=== PATIENT | female | born 1965 | race African-American/Black ===

== ENCOUNTER 2016-05-04 15:45 | Emergency (ER) | payer MEDICAID ==
[~2016-05-04] VITALS: Ht 167.6 cm; Wt 60.0 kg
[~2016-05-04 15:45] MED LIST: DIPH25CA83 PO; HYDR-519 PO; OXCA150T5 PO
[2016-05-04] MEDS ORDERED: HYDROCODONE/ACETAMINOPHEN 10/325MG TABLET PO ONE (16:30)
[2016-05-04 16:52] VITALS: BP 122/76
== END 2016-05-04 16:55 | disposition home or self-care (01) ==
LOC: ER 15:46
DX: G89.29 Other chronic pain (principal); M54.9 Dorsalgia, unspecified; F31.9 Bipolar disorder, unspecified; Z90.710 Acquired absence of both cervix and uterus; Z90.49 Acquired absence of other specified parts of digestive tract; Z88.5 Allergy status to narcotic agent; Z88.2 Allergy status to sulfonamides
CPT/HCPCS: 99283

== ENCOUNTER 2016-11-22 17:59 | Emergency (ER) | payer MEDICAID ==
[~2016-11-22] VITALS: Ht 167.6 cm; Wt 60.0 kg
[2016-11-22 21:59] LABS: BASOPHILS % 0.5 % (0.0-2.0); EOSINOPHILS % 1.4 % (0.0-5.0); HEMATOCRIT. 37.2 % (36.0-48.0); HEMOGLOBIN. 12.4 g/dL (12.0-16.0); LYMPHOCYTES % 63.8 % (20.0-50.0); MEAN CORPUSCULAR HEMOGLOBIN 27.8 pg (28.0-32.0); MEAN CORPUSCULAR VOLUME 83.6 fL (81.0-99.0); MEAN PLATELET VOLUME 8.2 fl (7.4-10.4); MONOCYTES % 7.8 % (2.0-8.0); NEUTROPHILS % 26.5 % (40.0-76.0); PLATELET 201 x1000/uL (130-400); RED BLOOD CELL COUNT 4.45 mill/uL (4.2-5.4); RED CELL DISTRIBUTION WIDTH 13.6 % (11.6-14.6)
[2016-11-22 22:12] LABS: CARBON DIOXIDE 24 mEq/L (21-32); CHLORIDE 110 mEq/L (98-107); TROPONIN I < 0.02 ng/mL (0.00-0.04)
[2016-11-22] MEDS ORDERED: KETOROLAC 15MG/ML VIAL IV ONE (23:15)
[2016-11-22 23:40] VITALS: BP 103/67
== END 2016-11-23 00:15 | disposition home or self-care (01) ==
LOC: ER 17:59
DX: M94.0 Chondrocostal junction syndrome [Tietze] (principal); R07.89 Other chest pain; F31.9 Bipolar disorder, unspecified; Z90.710 Acquired absence of both cervix and uterus; Z88.5 Allergy status to narcotic agent; Z88.2 Allergy status to sulfonamides; Z90.49 Acquired absence of other specified parts of digestive tract
CPT/HCPCS: 36415; 71010; 80048; 84484; 85025; 85379; 93005; 96374; 99285; C1893; J1885; Z7610

== ENCOUNTER 2017-02-13 08:14 | Emergency (ER) | payer MEDICAID ==
[~2017-02-13] VITALS: Ht 165.1 cm; Wt 69.0 kg
[2017-02-13 08:17] VITALS: BP 101/70
== END 2017-02-13 14:50 | disposition left against medical advice (07) ==
LOC: ER 08:28
DX: M79.1 Myalgia (principal); Z53.21 Procedure and treatment not carried out due to patient leaving prior to being seen by health care provider

== ENCOUNTER 2018-02-28 23:25 | Inpatient (IN) | payer MEDICAID ==
[~2018-02-28] VITALS: Ht 170.2 cm; Wt 73.9 kg
[2018-03-01] MEDS ORDERED: SODIUM CHLORIDE 0.45% 100 ML IV ONE (02:00)
[2018-03-01] MEDS ORDERED: ONDANSETRON HCL 4MG/2ML INJ IV ONE (02:00)
[2018-03-01] MEDS ORDERED: KETOROLAC 30MG/ML VIAL IV ONE (03:15)
[2018-03-01] MEDS ORDERED: SODIUM CHLORIDE 0.9% 1,000 ML IV ONE (03:15)
[2018-03-01 03:59] LABS: BASOPHILS % 0.3 % (0.0-2.0); HEMATOCRIT. 49.8 % (36.0-48.0); HEMOGLOBIN. 15.9 g/dL (12.0-16.0); LYMPHOCYTES % 8.3 % (20.0-50.0); MEAN CORPUSCULAR HEMOGLOBIN 26.9 pg (28.0-32.0); MEAN CORPUSCULAR VOLUME 84.1 fL (81.0-99.0); MEAN PLATELET VOLUME 8.6 fl (7.4-10.4); MONOCYTES % 4.7 % (2.0-8.0); NEUTROPHILS % 86.7 % (40.0-76.0); PLATELET 234 x1000/uL (130-400); RED BLOOD CELL COUNT 5.93 mill/uL (4.2-5.4); RED CELL DISTRIBUTION WIDTH 14.1 % (11.6-14.6)
[2018-03-01 04:03] LABS: CHLORIDE 107 mEq/L (98-107)
[2018-03-01 04:04] LABS: PARTIAL THROMBOPLASTIN TIME 23.1 sec (23.4-31.0); PROTHROMBIN TIME 10.5 sec (9.1-11.1)
[2018-03-01] MEDS ORDERED: CLONIDINE 0.1MG TABLET PO PRN (07:45)
[2018-03-01] MEDS ORDERED: IPRATROPIUM/ALBUTEROL 0.5-3(2.5)MG/3ML NEB INH PRN (07:45)
[2018-03-01] MEDS ORDERED: LORAZEPAM 2MG/ML CPJ IV PRN (07:45)
[2018-03-01] MEDS: MORPHINE SULFATE 4 MG/ML CPJ (NOT FOR IM USE) IV PRN ×2 (08:41→12:36)
[2018-03-01] MEDS: ONDANSETRON HCL 4MG/2ML INJ IV PRN ×2 (08:41→13:35)
[2018-03-01] MEDS: DEXT 5%/0.45% NACL KCL 10MEQ/L 1,000 ML IV SCH (08:47)
[2018-03-01] MEDS ORDERED: SKIN ADHESIVE 0.7 GM EA TOP ONE (09:48)
[2018-03-01] MEDS ORDERED: BUPIVACAINE HCL 0.5% (5MG/ML) 50ML ONE (09:48)
[2018-03-01] MEDS ORDERED: ROCURONIUM BROMIDE 10MG/ML VIAL 5ML IV ONE ×2 (10:35→11:42)
[2018-03-01] MEDS ORDERED: GLYCOPYRROLATE 0.2 MG/ML 2ML VIAL ONE ×2 (10:35→11:42)
[2018-03-01] MEDS ORDERED: NEOSTIGMINE METHYLSULFATE 1MG/ML 10 ML VIAL ONE ×2 (10:35→11:42)
[2018-03-01] MEDS ORDERED: PROPOFOL 200MG/20ML VIAL IV ONE (10:35)
[2018-03-01] MEDS ORDERED: FENTANYL CITRATE/PF 50MCG/ML 2ML VIAL ONE (10:35)
[2018-03-01] MEDS ORDERED: MIDAZOLAM HCL 2 MG/2 ML VIAL ONE (10:35)
[2018-03-01] MEDS ORDERED: ONDANSETRON HCL 4MG/2ML INJ ONE (10:36)
[2018-03-01] MEDS ORDERED: CEFAZOLIN SODIUM 1000MG/VIAL ONE (10:37)
[2018-03-01] MEDS ORDERED: KETOROLAC 30MG/ML VIAL ONE (14:44)
[2018-03-01 14:50] VITALS: BP 122/70
[2018-03-01 16:00] VITALS: BP 113/71
[2018-03-01] MEDS: KETOROLAC 15MG/ML VIAL IV PRN (17:03)
[2018-03-01 20:00] VITALS: BP 128/84
[2018-03-01] MEDS: HYDROCODONE/ACETAMINOPHEN 5/325MG TABLET PO PRN (22:24)
[2018-03-02] VITALS (7 sets, daily range): BP systolic 123–134; BP diastolic 75–93
[2018-03-02] MEDS: KETOROLAC 15MG/ML VIAL IV PRN ×3 (02:51→20:18)
[2018-03-02] MEDS: ONDANSETRON HCL 4MG/2ML INJ IV PRN (03:04)
[2018-03-02 05:49] LABS: HEMATOCRIT. 46.2 % (36.0-48.0); HEMOGLOBIN. 15.1 g/dL (12.0-16.0); MEAN CORPUSCULAR HEMOGLOBIN 27.2 pg (28.0-32.0); MEAN CORPUSCULAR VOLUME 83.2 fL (81.0-99.0); MEAN PLATELET VOLUME 8.8 fl (7.4-10.4); PLATELET 201 x1000/uL (130-400); RED BLOOD CELL COUNT 5.56 mill/uL (4.2-5.4)
[2018-03-02 05:58] LABS: CHLORIDE 103 mEq/L (98-107)
[2018-03-02] MEDS: HYDROCODONE/ACETAMINOPHEN 5/325MG TABLET PO PRN (06:39)
[2018-03-02] MEDS: HYDROCODONE/ACETAMINOPHEN 10/325MG TABLET PO PRN ×2 (09:32→16:49)
[2018-03-02] MEDS: DEXT 5%/0.45% NACL KCL 10MEQ/L 1,000 ML IV SCH (13:50)
[2018-03-02 15:02] LABS: PLATELET ESTIMATE NORMAL
[2018-03-03] VITALS: BP 137/73
[2018-03-03] MEDS: HYDROCODONE/ACETAMINOPHEN 10/325MG TABLET PO PRN ×2 (01:05→10:10)
[2018-03-03] MEDS: ONDANSETRON HCL 4MG/2ML INJ IV PRN ×3 (01:15→21:29)
[2018-03-03 04:00] VITALS: BP 138/98
[2018-03-03] MEDS: KETOROLAC 15MG/ML VIAL IV PRN ×3 (05:55→21:29)
[2018-03-03 08:00] VITALS: BP 137/85
[2018-03-03 12:00] VITALS: BP 136/81
[2018-03-03 16:00] VITALS: BP 130/74
[2018-03-03] MEDS: DIPHENHYDRAMINE 50MG/ML VIAL IV PRN ×2 (16:43→22:50)
[2018-03-03 20:00] VITALS: BP 126/85
[2018-03-04] VITALS: BP 139/95
[2018-03-04] MEDS: ONDANSETRON HCL 4MG/2ML INJ IV PRN ×3 (03:33→19:44)
[2018-03-04] MEDS: KETOROLAC 15MG/ML VIAL IV PRN ×3 (03:34→21:43)
[2018-03-04 03:48] VITALS: BP 135/86
[2018-03-04] MEDS: DIPHENHYDRAMINE 50MG/ML VIAL IV PRN ×2 (05:01→19:44)
[2018-03-04 08:18] LABS: HEMATOCRIT. 47.7 % (36.0-48.0); HEMOGLOBIN. 15.5 g/dL (12.0-16.0); MEAN CORPUSCULAR HEMOGLOBIN 26.8 pg (28.0-32.0); MEAN CORPUSCULAR VOLUME 82.6 fL (81.0-99.0); MEAN PLATELET VOLUME 8.8 fl (7.4-10.4); PLATELET 247 x1000/uL (130-400); RED BLOOD CELL COUNT 5.78 mill/uL (4.2-5.4); RED CELL DISTRIBUTION WIDTH 13.6 % (11.6-14.6)
[2018-03-04 08:32] LABS: CHLORIDE 99 mEq/L (98-107)
[2018-03-04 08:57] VITALS: BP 128/80
[2018-03-04] MEDS ORDERED: BARIUM SULFATE 176 GM SUSP.RECON ONE (11:17)
[2018-03-04 11:26] LABS: PLATELET ESTIMATE NORMAL
[2018-03-04] MEDS ORDERED: SIMETHICONE/SOD BICARB/CIT AC 1 EACH GRAN.EF.PK ONE (11:30)
[2018-03-04] MEDS ORDERED: DIATR MEGLU/DIATRIZOATE SOLN 120ML ONE (11:47)
[2018-03-04 16:00] VITALS: BP 132/78
[2018-03-04] MEDS: HYDROCODONE/ACETAMINOPHEN 10/325MG TABLET PO PRN (17:39)
[2018-03-04 20:00] VITALS: BP 147/96
[2018-03-05] VITALS: BP 128/93
[2018-03-05 02:00] VITALS: BP 138/90
[2018-03-05] MEDS: ONDANSETRON HCL 4MG/2ML INJ IV PRN ×3 (02:11→14:53)
[2018-03-05] MEDS: DIPHENHYDRAMINE 50MG/ML VIAL IV PRN ×3 (02:11→14:52)
[2018-03-05] MEDS: HYDROCODONE/ACETAMINOPHEN 10/325MG TABLET PO PRN ×2 (02:12→19:18)
[2018-03-05 07:33] LABS: HEMATOCRIT. 48.4 % (36.0-48.0); HEMOGLOBIN. 15.8 g/dL (12.0-16.0); MEAN CORPUSCULAR HEMOGLOBIN 26.7 pg (28.0-32.0); MEAN CORPUSCULAR VOLUME 81.9 fL (81.0-99.0); PLATELET 267 x1000/uL (130-400); RED BLOOD CELL COUNT 5.91 mill/uL (4.2-5.4); RED CELL DISTRIBUTION WIDTH 13.4 % (11.6-14.6)
[2018-03-05 08:00] VITALS: BP 137/89
[2018-03-05] MEDS: KETOROLAC 15MG/ML VIAL IV PRN ×2 (09:29→14:53)
[2018-03-05 10:03] LABS: PLATELET ESTIMATE NORMAL
[2018-03-05 11:19] LABS: CHLORIDE 92 mEq/L (98-107)
[2018-03-05 12:00] VITALS: BP 123/95
[2018-03-05] MEDS: POTASSIUM CHLORIDE 20MEQ TABLET SR PO NR ×2 (14:53→19:05)
[2018-03-05] MEDS ORDERED: SODIUM CHLORIDE 0.9% 1,000 ML IV SCH (15:00)
[2018-03-05 16:00] VITALS: BP 126/88
[2018-03-05 20:00] VITALS: BP 134/85
[2018-03-06] VITALS: BP 160/102
[2018-03-06] MEDS ORDERED: POTASSIUM CHLORIDE INJ 10 MEQ in SODIUM CHLORIDE 0.9% 1,000 ML IV SCH ×2
[2018-03-06] MEDS: KETOROLAC 15MG/ML VIAL IV PRN ×2 (00:04→13:39)
[2018-03-06] MEDS: ONDANSETRON HCL 4MG/2ML INJ IV PRN ×3 (00:05→22:01)
[2018-03-06] MEDS: DIPHENHYDRAMINE 50MG/ML VIAL IV PRN ×2 (00:05→09:48)
[2018-03-06 04:00] VITALS: BP 135/82
[2018-03-06 07:02] LABS: HEMATOCRIT. 45.5 % (36.0-48.0); HEMOGLOBIN. 14.8 g/dL (12.0-16.0); MEAN CORPUSCULAR HEMOGLOBIN 26.7 pg (28.0-32.0); MEAN CORPUSCULAR VOLUME 82.1 fL (81.0-99.0); MEAN PLATELET VOLUME 9.1 fl (7.4-10.4); PLATELET 268 x1000/uL (130-400); RED BLOOD CELL COUNT 5.55 mill/uL (4.2-5.4); RED CELL DISTRIBUTION WIDTH 13.6 % (11.6-14.6)
[2018-03-06] MEDS ORDERED: PROPOFOL 200MG/20ML VIAL IV ONE (07:08)
[2018-03-06] MEDS ORDERED: LIDOCAINE HCL 1% 20ML VIAL (Pyxis) INJ ONE (07:08)
[2018-03-06] MEDS ORDERED: FENTANYL CITRATE/PF 50MCG/ML 2ML VIAL ONE (07:09)
[2018-03-06] MEDS ORDERED: MIDAZOLAM HCL 2 MG/2 ML VIAL ONE (07:09)
[2018-03-06] MEDS ORDERED: ROCURONIUM BROMIDE 10MG/ML VIAL 5ML IV ONE (07:11)
[2018-03-06] MEDS ORDERED: LEVOFLOXACIN 500MG PREMIX 100 ML IV NR ×2 (07:30→13:00)
[2018-03-06] MEDS ORDERED: ACETAMINOPHEN 650MG SUPP PR PRN (07:30)
[2018-03-06 07:33] LABS: CHLORIDE 95 mEq/L (98-107)
[2018-03-06] MEDS ORDERED: BUPIVACAINE HCL 0.5% (5MG/ML) 50ML ONE (07:40)
[2018-03-06] MEDS ORDERED: CEFAZOLIN SODIUM 1000MG/VIAL ONE (07:51)
[2018-03-06] MEDS ORDERED: ONDANSETRON HCL 4MG/2ML INJ ONE (08:22)
[2018-03-06] MEDS ORDERED: GLYCOPYRROLATE 0.2 MG/ML 2ML VIAL ONE (08:27)
[2018-03-06] MEDS ORDERED: NEOSTIGMINE METHYLSULFATE 1MG/ML 10 ML VIAL ONE (08:28)
[2018-03-06] MEDS ORDERED: METRONIDAZOLE 500 MG PREMIX 100 ML IV SCH (09:00)
[2018-03-06] MEDS: FENTANYL CITRATE/PF 50MCG/ML 2ML VIAL IV PRN ×4 (09:32→11:19)
[2018-03-06 10:23] LABS: PLATELET ESTIMATE NORMAL
[2018-03-06 12:00] VITALS: BP 122/81
[2018-03-06] MEDS: METRONIDAZOLE 500 MG PREMIX 100 ML IV SCH ×2 (13:02→22:02)
[2018-03-06] MEDS: HYDROMORPHONE HCL/PF 2MG/ML CPJ IV PRN ×3 (13:02→22:02)
[2018-03-06] MEDS: DEXT 5%/0.45% NACL KCL 20MEQ/L 1,000 ML IV SCH (16:33)
[2018-03-06 16:48] VITALS: BP 94/54
[2018-03-06 20:00] VITALS: BP 127/78
[2018-03-06] MEDS: FAMOTIDINE 20MG/2ML VIAL IV SCH (21:00)
[2018-03-06 21:46] VITALS: BP 116/74
[2018-03-07] VITALS (8 sets, daily range): BP systolic 104–138; BP diastolic 63–99
[2018-03-07] MEDS: FAMOTIDINE 20MG/2ML VIAL IV SCH ×3 (02:23→21:36)
[2018-03-07] MEDS: HYDROMORPHONE HCL/PF 2MG/ML CPJ IV PRN ×5 (02:39→21:35)
[2018-03-07] MEDS: ONDANSETRON HCL 4MG/2ML INJ IV PRN ×2 (06:02→17:31)
[2018-03-07] MEDS: METRONIDAZOLE 500 MG PREMIX 100 ML IV SCH (06:02)
[2018-03-07] MEDS: DEXT 5%/0.45% NACL KCL 20MEQ/L 1,000 ML IV SCH ×3 (06:03→19:47)
[2018-03-07 07:55] LABS: BASOPHILS % 0.1 % (0.0-2.0); EOSINOPHILS % 0.4 % (0.0-5.0); HEMATOCRIT. 39.5 % (36.0-48.0); HEMOGLOBIN. 12.8 g/dL (12.0-16.0); MEAN CORPUSCULAR HEMOGLOBIN 26.8 pg (28.0-32.0); MEAN CORPUSCULAR VOLUME 82.7 fL (81.0-99.0); MEAN PLATELET VOLUME 8.7 fl (7.4-10.4); MONOCYTES % 11.7 % (2.0-8.0); NEUTROPHILS % 60.8 % (40.0-76.0); PLATELET 213 x1000/uL (130-400); RED BLOOD CELL COUNT 4.78 mill/uL (4.2-5.4); RED CELL DISTRIBUTION WIDTH 13.6 % (11.6-14.6)
[2018-03-07 08:11] LABS: CHLORIDE 103 mEq/L (98-107)
[2018-03-07] MEDS: MORPHINE SULFATE 4 MG/ML CPJ (NOT FOR IM USE) IV PRN ×2 (11:29→11:32)
[2018-03-07] MEDS: DIPHENHYDRAMINE 50MG/ML VIAL IV PRN (17:32)
[2018-03-08] VITALS: BP 119/68
[2018-03-08] MEDS: MORPHINE SULFATE 4 MG/ML CPJ (NOT FOR IM USE) IV PRN ×2 (00:09→06:25)
[2018-03-08] MEDS: HYDROMORPHONE HCL/PF 2MG/ML CPJ IV PRN ×4 (02:40→21:36)
[2018-03-08 04:00] VITALS: BP 100/67
[2018-03-08] MEDS: DIPHENHYDRAMINE 50MG/ML VIAL IV PRN ×2 (06:25→16:11)
[2018-03-08] MEDS: ONDANSETRON HCL 4MG/2ML INJ IV PRN ×2 (06:25→19:58)
[2018-03-08 06:58] LABS: HEMATOCRIT. 41.6 % (36.0-48.0); HEMOGLOBIN. 13.3 g/dL (12.0-16.0); MEAN CORPUSCULAR HEMOGLOBIN 26.7 pg (28.0-32.0); MEAN CORPUSCULAR VOLUME 83.4 fL (81.0-99.0); MEAN PLATELET VOLUME 8.7 fl (7.4-10.4); PLATELET 240 x1000/uL (130-400); RED BLOOD CELL COUNT 4.99 mill/uL (4.2-5.4); RED CELL DISTRIBUTION WIDTH 13.6 % (11.6-14.6)
[2018-03-08 07:08] LABS: CHLORIDE 103 mEq/L (98-107)
[2018-03-08 08:00] VITALS: BP 114/71
[2018-03-08] MEDS: FAMOTIDINE 20MG/2ML VIAL IV SCH ×2 (08:56→19:58)
[2018-03-08 10:56] LABS: PLATELET ESTIMATE NORMAL
[2018-03-08 12:00] VITALS: BP 105/70
[2018-03-08] MEDS: DEXT 5%/0.45% NACL KCL 20MEQ/L 1,000 ML IV SCH ×2 (12:21→21:39)
[2018-03-08] MEDS ORDERED: POTASSIUM CHLORIDE 20MEQ TABLET SR PO SCH (13:15)
[2018-03-08 16:00] VITALS: BP 127/79
[2018-03-08 20:00] VITALS: BP 121/86
[2018-03-09] VITALS: BP 124/76
[2018-03-09] MEDS: MORPHINE SULFATE 4 MG/ML CPJ (NOT FOR IM USE) IV PRN (00:07)
[2018-03-09 04:00] VITALS: BP 137/96
[2018-03-09] MEDS: HYDROMORPHONE HCL/PF 2MG/ML CPJ IV PRN ×4 (04:26→22:09)
[2018-03-09] MEDS: ONDANSETRON HCL 4MG/2ML INJ IV PRN (06:07)
[2018-03-09] MEDS: DIPHENHYDRAMINE 50MG/ML VIAL IV PRN ×2 (06:07→21:06)
[2018-03-09 07:48] LABS: EOSINOPHILS % 0.5 % (0.0-5.0); HEMATOCRIT. 38.8 % (36.0-48.0); HEMOGLOBIN. 12.6 g/dL (12.0-16.0); LYMPHOCYTES % 25.4 % (20.0-50.0); MEAN CORPUSCULAR VOLUME 82.7 fL (81.0-99.0); MEAN PLATELET VOLUME 8.5 fl (7.4-10.4); MONOCYTES % 7.7 % (2.0-8.0); NEUTROPHILS % 66.4 % (40.0-76.0); PLATELET 271 x1000/uL (130-400); RED BLOOD CELL COUNT 4.69 mill/uL (4.2-5.4); RED CELL DISTRIBUTION WIDTH 13.1 % (11.6-14.6)
[2018-03-09 08:00] VITALS: BP 119/84
[2018-03-09] MEDS: FAMOTIDINE 20MG/2ML VIAL IV SCH ×2 (09:02→20:59)
[2018-03-09] MEDS: DEXT 5%/0.45% NACL KCL 20MEQ/L 1,000 ML IV SCH ×2 (09:39→21:01)
[2018-03-09 12:00] VITALS: BP 138/94
[2018-03-09 13:04] LABS: CHLORIDE 106 mEq/L (98-107)
[2018-03-09] MEDS: DOCUSATE SODIUM 100MG CAPSULE PO SCH (13:15)
[2018-03-09] MEDS ORDERED: MORPHINE SULFATE 4 MG/ML CPJ (NOT FOR IM USE) IV PRN (13:30)
[2018-03-09 16:00] VITALS: BP 129/87
[2018-03-09 20:00] VITALS: BP 122/85
[2018-03-10] VITALS (8 sets, daily range): BP systolic 118–144; BP diastolic 76–90
[2018-03-10] MEDS: ONDANSETRON HCL 4MG/2ML INJ IV PRN ×2 (02:37→14:51)
[2018-03-10] MEDS: HYDROMORPHONE HCL/PF 2MG/ML CPJ IV PRN ×3 (02:38→11:12)
[2018-03-10 07:24] LABS: BASOPHILS % 0.1 % (0.0-2.0); EOSINOPHILS % 0.9 % (0.0-5.0); LYMPHOCYTES % 43.5 % (20.0-50.0); MEAN CORPUSCULAR HEMOGLOBIN 26.9 pg (28.0-32.0); MEAN CORPUSCULAR VOLUME 82.6 fL (81.0-99.0); MEAN PLATELET VOLUME 8.8 fl (7.4-10.4); MONOCYTES % 9.4 % (2.0-8.0); NEUTROPHILS % 46.1 % (40.0-76.0); PLATELET 296 x1000/uL (130-400); RED BLOOD CELL COUNT 4.84 mill/uL (4.2-5.4); RED CELL DISTRIBUTION WIDTH 13.4 % (11.6-14.6)
[2018-03-10 07:58] LABS: CHLORIDE 108 mEq/L (98-107)
[2018-03-10] MEDS: FAMOTIDINE 20MG/2ML VIAL IV SCH (08:30)
[2018-03-10] MEDS: DOCUSATE SODIUM 100MG CAPSULE PO SCH (08:30)
[2018-03-10] MEDS ORDERED: ONDA4TAB5 MT ×2 (14:54→14:56)
[2018-03-10] MEDS ORDERED: ASPI-1158 MT (14:54)
[2018-03-10] MEDS ORDERED: DOCU-138 PO (14:54)
== END 2018-03-10 18:45 | disposition home or self-care (01) | DRG 227 ==
LOC: ER 23:28 → 8WST 03-01 04:31 → EDBEDREQSVC 03-01 04:39 → EDBEDREQ 03-01 04:39 → EDBEDREQTM 03-01 04:39 → ENRESERV 03-01 12:31 → CANRESERV 03-01 12:31 → 8WST 03-03 15:23
PROVIDERS: ADMIT Internal Medicine; ATTEND Internal Medicine
PROC: 0WQF0ZZ Repair Abdominal Wall, Open Approach (ICD-10-PCS; principal; 2018-03-06)
PROC: 0DN80ZZ Release Small Intestine, Open Approach (ICD-10-PCS; 2018-03-06)
DX: K43.6 Other and unspecified ventral hernia with obstruction, without gangrene (principal); I31.3 Pericardial effusion (noninflammatory); K56.7 Ileus, unspecified; F31.9 Bipolar disorder, unspecified; E11.9 Type 2 diabetes mellitus without complications; F14.90 Cocaine use, unspecified, uncomplicated; E87.6 Hypokalemia; K43.2 Incisional hernia without obstruction or gangrene; Z88.2 Allergy status to sulfonamides; Z90.710 Acquired absence of both cervix and uterus; Z98.51 Tubal ligation status; Z90.49 Acquired absence of other specified parts of digestive tract; Z79.4 Long term (current) use of insulin
CPT/HCPCS: 36415; 71045; 74018; 74022; 74176; 74249; 80048; 83605; 86850; 86900; 86920; 93005; 94640; 97162; 99285; C1893; J0690; J1170; J1200; J1885; J1956; J2250; J2270; J2405; J2704; J2710; J3010; J3480; J3490; J7030; J7050; J7517; J7620; Q9963

== ENCOUNTER 2018-06-19 11:05 | Emergency (ER) | payer MEDICAID ==
[~2018-06-19] VITALS: Ht 172.7 cm; Wt 62.0 kg
[~2018-06-19 11:05] MED LIST changes: +ASPI-1158 MT; -DIPH25CA83 PO; +DOCU-138 PO; -HYDR-519 PO; +ONDA4TAB5 MT; -OXCA150T5 PO
[2018-06-19] MEDS ORDERED: LORAZEPAM 1MG TABLET PO ONE (11:30)
[2018-06-19 12:15] VITALS: BP 132/84
== END 2018-06-19 12:15 | disposition home or self-care (01) ==
LOC: ER 11:05
DX: F41.1 Generalized anxiety disorder (principal); Z88.5 Allergy status to narcotic agent; Z88.2 Allergy status to sulfonamides
CPT/HCPCS: 71045; 99284; Z7610

== ENCOUNTER 2019-03-19 08:35 | Emergency (ER) | payer MEDICAID ==
[~2019-03-19] VITALS: Ht 167.6 cm; Wt 70.0 kg
[2019-03-19 11:05] VITALS: BP 110/72
== END 2019-03-19 11:30 | disposition left against medical advice (07) ==
LOC: ER 08:35
DX: Z53.21 Procedure and treatment not carried out due to patient leaving prior to being seen by health care provider (principal)

== ENCOUNTER 2019-06-26 10:12 | Inpatient (IN) | payer MEDICAID ==
[~2019-06-26] VITALS: Ht 165.1 cm; Wt 68.5 kg
[2019-06-26] MEDS ORDERED: KETOROLAC 30MG/ML VIAL IV STA (10:31)
[2019-06-26] MEDS ORDERED: SODIUM CHLORIDE 0.9% 1,000 ML IV ONE ×3 (10:31→16:00)
[2019-06-26] MEDS ORDERED: ONDANSETRON HCL 4MG/2ML INJ IV ONE (10:45)
[2019-06-26 11:18] LABS: BASOPHILS % 0.1 % (0.0-2.0); HEMATOCRIT. 52.5 % (36.0-48.0); HEMOGLOBIN. 17.5 g/dL (12.0-16.0); LYMPHOCYTES % 26.8 % (20.0-50.0); MEAN CORPUSCULAR HEMOGLOBIN 27.2 pg (28.0-32.0); MEAN CORPUSCULAR VOLUME 81.3 fL (81.0-99.0); MEAN PLATELET VOLUME 8.8 fl (7.4-10.4); NEUTROPHILS % 62.1 % (40.0-76.0); PLATELET 239 x1000/uL (130-400); RED BLOOD CELL COUNT 6.46 mill/uL (4.2-5.4); RED CELL DISTRIBUTION WIDTH 13.7 % (11.6-14.6)
[2019-06-26 11:26] LABS: PROTHROMBIN TIME 10.9 sec (9.6-11.0)
[2019-06-26 11:37] LABS: CHLORIDE 100 mEq/L (98-107)
[2019-06-26 11:41] LABS: ETHANOL BLOOD < 10 mg/dL
[2019-06-26] MEDS ORDERED: MORPHINE SULFATE 2 MG/ML CPJ (NOT FOR IM USE) IV PRN (13:15)
[2019-06-26] MEDS ORDERED: MORPHINE SULFATE 4 MG/ML CPJ (NOT FOR IM USE) IV STA (14:44)
[2019-06-26] MEDS ORDERED: ONDANSETRON HCL 4MG/2ML INJ IV STA (14:44)
[2019-06-26] MEDS ORDERED: DIPHENHYDRAMINE 50MG/ML VIAL IV ONE (14:45)
[2019-06-26] MEDS ORDERED: IOHEXOL-300 100 ML BOTTLE ONE (14:53)
[2019-06-26] MEDS ORDERED: DEXT 5%/0.45% NACL 1000ML 1,000 ML IV SCH (15:00)
[2019-06-26] MEDS ORDERED: BACITRACIN 50,000 UNITS/VIAL ONE (15:51)
[2019-06-26] MEDS ORDERED: BUPIVACAINE HCL 0.5% (5MG/ML) 50ML ONE (15:51)
[2019-06-26] MEDS ORDERED: NORMAL SALINE 0.9% 10 ML SYR ONE (15:51)
[2019-06-26] MEDS ORDERED: MEPERIDINE HCL/PF 25MG/ML CPJ IV PRN ×4 (16:00)
[2019-06-26] MEDS ORDERED: HYDROMORPHONE HCL/PF 2MG/ML CPJ IV PRN (16:00)
[2019-06-26] MEDS ORDERED: ONDANSETRON HCL 4MG/2ML INJ IV PRN ×3 (16:00→16:30)
[2019-06-26] MEDS ORDERED: ACETAMINOPHEN 650MG SUPP PR PRN (16:30)
[2019-06-26 16:50] LABS: CLARITY URINE CLEAR (CLEAR); COLOR URINE YELLOW (YELLOW); KETONES URINE 3+ (NEGATIVE); LEUKOCYTE ESTERASE URINE NEGATIVE (NEGATIVE); NITRITE URINE NEGATIVE (NEGATIVE); OCCULT BLOOD URINE 1+ (NEGATIVE); PROTEIN URINE 1+ (NEGATIVE); SPECIFIC GRAVITY URINE 1.089 (1.005-1.030)
[2019-06-26] MEDS ORDERED: SKIN ADHESIVE 0.7 GM EA TOP ONE (16:57)
[2019-06-26 17:00] LABS: *AMPHETAMINES SCREEN URINE NEGATIVE (NEGATIVE); *BARBITURATES SCREEN URINE NEGATIVE (NEGATIVE); *BENZODIAZEPINES SCREEN URINE PRESUMTIVE POSITIVE (NEGATIVE); *COCAINE SCREEN URINE PRESUMTIVE POSITIVE (NEGATIVE)
[2019-06-26 17:02] LABS: CANNABINOID URINE SCREEN NEGATIVE (NEGATIVE); METHADONE URINE SCREEN NEGATIVE (NEGATIVE); OPIATES URINE SCREEN NEGATIVE (NEGATIVE); PHENCYCLIDINE URINE SCREEN NEGATIVE (NEGATIVE)
[2019-06-26] MEDS: HYDROMORPHONE HCL/PF 2MG/ML CPJ IV PRN ×3 (18:30→23:07)
[2019-06-26 19:50] VITALS: BP 97/54
[2019-06-26 20:00] VITALS: BP 107/60
[2019-06-26] MEDS ORDERED: DEXT 5%/0.45% NACL KCL 20MEQ/L 1,000 ML IV SCH (23:00)
[2019-06-27] VITALS: BP 107/60
[2019-06-27] MEDS ORDERED: DIAZ10TA PO (00:38)
[2019-06-27] MEDS: MORPHINE SULFATE 4 MG/ML CPJ (NOT FOR IM USE) IV PRN ×5 (03:23→18:24)
[2019-06-27] MEDS: ONDANSETRON HCL 4MG/2ML INJ IV PRN ×3 (03:30→22:10)
[2019-06-27 04:00] VITALS: BP 105/56
[2019-06-27 08:00] VITALS: BP 110/60
[2019-06-27 08:38] LABS: BASOPHILS % 0.1 % (0.0-2.0); CHLORIDE 111 mEq/L (98-107); EOSINOPHILS % 0.3 % (0.0-5.0); HEMATOCRIT. 39.5 % (36.0-48.0); HEMOGLOBIN. 13.2 g/dL (12.0-16.0); LYMPHOCYTES % 35.6 % (20.0-50.0); MEAN CORPUSCULAR HEMOGLOBIN 27.5 pg (28.0-32.0); MEAN CORPUSCULAR VOLUME 82.1 fL (81.0-99.0); MEAN PLATELET VOLUME 9.1 fl (7.4-10.4); MONOCYTES % 9.8 % (2.0-8.0); NEUTROPHILS % 54.2 % (40.0-76.0); PLATELET 186 x1000/uL (130-400); RED BLOOD CELL COUNT 4.81 mill/uL (4.2-5.4); RED CELL DISTRIBUTION WIDTH 13.6 % (11.6-14.6)
[2019-06-27 12:00] VITALS: BP 120/75
[2019-06-27 16:00] VITALS: BP 110/77
[2019-06-27 20:00] VITALS: BP 106/58
[2019-06-27] MEDS: MORPHINE SULFATE 2 MG/ML CPJ (NOT FOR IM USE) IV PRN (22:00)
[2019-06-28] VITALS: BP 108/66
[2019-06-28] MEDS: MORPHINE SULFATE 2 MG/ML CPJ (NOT FOR IM USE) IV PRN ×2 (02:22→12:35)
[2019-06-28] MEDS: ONDANSETRON HCL 4MG/2ML INJ IV PRN ×3 (02:29→17:43)
[2019-06-28 04:00] VITALS: BP 106/64
[2019-06-28 06:28] LABS: BASOPHILS % 0.2 % (0.0-2.0); EOSINOPHILS % 1.3 % (0.0-5.0); HEMATOCRIT. 41.4 % (36.0-48.0); HEMOGLOBIN. 13.9 g/dL (12.0-16.0); MEAN CORPUSCULAR HEMOGLOBIN 27.6 pg (28.0-32.0); MEAN CORPUSCULAR VOLUME 82.3 fL (81.0-99.0); MEAN PLATELET VOLUME 9.2 fl (7.4-10.4); MONOCYTES % 9.9 % (2.0-8.0); NEUTROPHILS % 45.6 % (40.0-76.0); PLATELET 171 x1000/uL (130-400); RED BLOOD CELL COUNT 5.03 mill/uL (4.2-5.4); RED CELL DISTRIBUTION WIDTH 13.5 % (11.6-14.6)
[2019-06-28 06:36] LABS: CHLORIDE 107 mEq/L (98-107)
[2019-06-28] MEDS: MORPHINE SULFATE 4 MG/ML CPJ (NOT FOR IM USE) IV PRN ×3 (08:19→20:22)
[2019-06-28 12:00] VITALS: BP 115/73
[2019-06-28] MEDS ORDERED: POTASSIUM CHLORIDE INJ 40 MEQ in DEXT 5% WATER 500 ML IV SCH (12:00)
[2019-06-28 16:00] VITALS: BP 116/70
[2019-06-28 20:00] VITALS: BP 105/67
[2019-06-29] MEDS: MORPHINE SULFATE 4 MG/ML CPJ (NOT FOR IM USE) IV PRN ×2 (01:20→06:10)
[2019-06-29] MEDS: ONDANSETRON HCL 4MG/2ML INJ IV PRN ×2 (01:20→12:10)
[2019-06-29 07:00] LABS: BASOPHILS % 0.2 % (0.0-2.0); EOSINOPHILS % 1.6 % (0.0-5.0); HEMATOCRIT. 36.5 % (36.0-48.0); HEMOGLOBIN. 12.2 g/dL (12.0-16.0); LYMPHOCYTES % 31.6 % (20.0-50.0); MEAN CORPUSCULAR HEMOGLOBIN 27.3 pg (28.0-32.0); MEAN PLATELET VOLUME 9.3 fl (7.4-10.4); MONOCYTES % 8.3 % (2.0-8.0); NEUTROPHILS % 58.3 % (40.0-76.0); PLATELET 175 x1000/uL (130-400); RED BLOOD CELL COUNT 4.45 mill/uL (4.2-5.4)
[2019-06-29 07:07] LABS: CHLORIDE 105 mEq/L (98-107)
[2019-06-29 08:00] VITALS: BP 114/54
[2019-06-29] MEDS ORDERED: POTASSIUM CHLORIDE 20MEQ TABLET SR PO NR (10:00)
[2019-06-29 12:00] VITALS: BP 95/51
[2019-06-29 12:10] VITALS: BP 95/51
[2019-06-29] MEDS: MORPHINE SULFATE 2 MG/ML CPJ (NOT FOR IM USE) IV PRN (12:10)
== END 2019-06-29 14:40 | disposition left against medical advice (07) | DRG 224 ==
LOC: ER 10:27 → 6EST 12:35 → ENRESERV 14:59 → CANBEDREQ 19:18
PROVIDERS: ADMIT Internal Medicine; ATTEND Internal Medicine
PROC: 0DN80ZZ Release Small Intestine, Open Approach (ICD-10-PCS; principal; 2019-06-26)
DX: K56.601 Complete intestinal obstruction, unspecified as to cause (principal); R16.0 Hepatomegaly, not elsewhere classified; F10.10 Alcohol abuse, uncomplicated; F41.9 Anxiety disorder, unspecified; F14.90 Cocaine use, unspecified, uncomplicated; F31.9 Bipolar disorder, unspecified; Z53.29 Procedure and treatment not carried out because of patient's decision for other reasons; M43.17 Spondylolisthesis, lumbosacral region; Y90.9 Presence of alcohol in blood, level not specified; K56.7 Ileus, unspecified; K59.00 Constipation, unspecified; Z88.5 Allergy status to narcotic agent; Z88.2 Allergy status to sulfonamides; Z79.82 Long term (current) use of aspirin; Z79.899 Other long term (current) drug therapy; Z90.710 Acquired absence of both cervix and uterus; Z90.49 Acquired absence of other specified parts of digestive tract; Z71.41 Alcohol abuse counseling and surveillance of alcoholic; Z71.51 Drug abuse counseling and surveillance of drug abuser
CPT/HCPCS: 36415; 71045; 74018; 74177; 80048; 80053; 80305; 80320; 81003; 83605; 85025; 96374; 97116; 97162; 97535; 99291; J1170; J1200; J1885; J2270; J2405; J3480; J3490; J7030; J7060; Q9967; G0480

== ENCOUNTER 2019-06-30 10:48 | Emergency (ER) | payer MEDICAID ==
[~2019-06-30] VITALS: Ht 162.6 cm; Wt 54.0 kg
[~2019-06-30 10:48] MED LIST changes: +DIAZ10TA PO
[2019-06-30 13:00] VITALS: BP 120/75
== END 2019-06-30 13:51 | disposition left against medical advice (07) ==
LOC: ER 10:48 → CANBEDREQ 14:00
DX: R10.84 Generalized abdominal pain (principal); F41.9 Anxiety disorder, unspecified; F31.9 Bipolar disorder, unspecified; F14.10 Cocaine abuse, uncomplicated; Z90.49 Acquired absence of other specified parts of digestive tract; Z90.710 Acquired absence of both cervix and uterus; Z98.51 Tubal ligation status; Z88.2 Allergy status to sulfonamides; Z79.899 Other long term (current) drug therapy
CPT/HCPCS: 74018; 99283

== ENCOUNTER 2021-01-21 18:10 | Inpatient (IN) | payer MEDICAID, OTHER ==
[~2021-01-21] VITALS: Ht 165.1 cm; Wt 70.8 kg
[~2021-01-21 18:10] MED LIST changes: -ASPI-1158 MT; +ASPI-1406 MT
[2021-01-21] MEDS ORDERED: HYDROCODONE/ACETAMINOPHEN 5/325MG TABLET PO STA (18:22)
[2021-01-21] MEDS ORDERED: ONDANSETRON 4MG ODT PO ONE (18:30)
[2021-01-21 19:39] LABS: BASOPHILS % 0.4 % (0.0-2.0); EOSINOPHILS % 0.6 % (0.0-5.0); HEMATOCRIT. 43.4 % (36.0-48.0); HEMOGLOBIN. 13.5 g/dL (12.0-16.0); LYMPHOCYTES % 32.5 % (20.0-50.0); MEAN CORPUSCULAR HEMOGLOBIN 26.6 pg (28.0-32.0); MEAN CORPUSCULAR VOLUME 85.4 fL (81.0-99.0); MEAN PLATELET VOLUME 8.5 fl (7.4-10.4); MONOCYTES % 5.9 % (2.0-8.0); NEUTROPHILS % 60.6 % (40.0-76.0); PLATELET 234 x1000/uL (130-400); RED BLOOD CELL COUNT 5.08 mill/uL (4.2-5.4); RED CELL DISTRIBUTION WIDTH 13.9 % (11.6-14.6)
[2021-01-21 19:44] LABS: CHLORIDE 110 mEq/L (98-107)
[2021-01-22] MEDS ORDERED: ONDANSETRON HCL 4MG/2ML INJ IV ONE ×2 (02:00→04:45)
[2021-01-22] MEDS ORDERED: MORPHINE SULFATE 2 MG/ML CPJ (NOT FOR IM USE) IV ONE (04:45)
[2021-01-22] MEDS ORDERED: DIPHENHYDRAMINE 50MG/ML VIAL IV ONE (04:45)
[2021-01-22] MEDS ORDERED: SODIUM CHLORIDE 0.9% 1,000 ML IV ONE (05:15)
[2021-01-22] MEDS ORDERED: MORPHINE SULFATE 4 MG/ML CPJ (NOT FOR IM USE) IV PRN (08:15)
[2021-01-22] MEDS ORDERED: BUPIVACAINE HCL 0.5% (5MG/ML) 50ML ONE (08:36)
[2021-01-22] MEDS ORDERED: SKIN ADHESIVE 0.7 GM EA TOP ONE (08:37)
[2021-01-22] MEDS ORDERED: ENOXAPARIN 40MG/0.4ML SYR SUBCUT SCH (09:00)
[2021-01-22] MEDS ORDERED: DEXT 5%/0.45% NACL KCL 20MEQ/L 1,000 ML IV SCH (09:00)
[2021-01-22] MEDS ORDERED: MORPHINE SULFATE/PF 1MG/ML 10ML AMP ONE ×2 (09:05→09:16)
[2021-01-22] MEDS ORDERED: PROPOFOL 200MG/20ML VIAL IV ONE (09:35)
[2021-01-22] MEDS ORDERED: ROCURONIUM BROMIDE 10MG/ML VIAL 5ML IV ONE (09:35)
[2021-01-22] MEDS ORDERED: GLYCOPYRROLATE 0.2 MG/ML 2ML VIAL ONE (09:35)
[2021-01-22] MEDS ORDERED: CEFAZOLIN SODIUM 1000MG/VIAL ONE (10:00)
[2021-01-22] MEDS ORDERED: LABETALOL 5MG/ML SYR 20 MG/4 ML SYRINGE IV PRN (10:15)
[2021-01-22] MEDS ORDERED: MEPERIDINE HCL/PF 25MG/ML CPJ IV PRN (10:15)
[2021-01-22] MEDS ORDERED: DEXAMETHASONE 4MG/ML 1ML VIAL ONE (10:31)
[2021-01-22] MEDS: ONDANSETRON HCL 4MG/2ML INJ IV PRN ×2 (12:33→15:47)
[2021-01-22] MEDS: HYDROMORPHONE HCL/PF 2MG/ML CPJ IV PRN ×2 (12:43→15:48)
[2021-01-22 18:14] VITALS: BP 106/64
[2021-01-22] MEDS: DEXT 5%/0.45% NACL KCL 20MEQ/L 1,000 ML IV SCH (18:28)
[2021-01-22] MEDS: ENOXAPARIN 40MG/0.4ML SYR SUBCUT SCH (18:40)
[2021-01-22] MEDS: DIPHENHYDRAMINE 50MG/ML VIAL IV PRN (18:41)
[2021-01-22 20:00] VITALS: BP 98/61
[2021-01-23] VITALS (7 sets, daily range): BP systolic 100–122; BP diastolic 54–70
[2021-01-23] MEDS: MORPHINE SULFATE 2 MG/ML CPJ (NOT FOR IM USE) IV PRN ×4 (00:20→21:54)
[2021-01-23] MEDS: ONDANSETRON HCL 4MG/2ML INJ IV PRN (00:28)
[2021-01-23] MEDS: DIPHENHYDRAMINE 50MG/ML VIAL IV PRN ×2 (01:06→10:08)
[2021-01-23] MEDS: DEXT 5%/0.45% NACL KCL 20MEQ/L 1,000 ML IV SCH ×3 (03:26→23:42)
[2021-01-23 12:48] LABS: BASOPHILS % 0.2 % (0.0-2.0); HEMATOCRIT. 38.3 % (36.0-48.0); HEMOGLOBIN. 12.7 g/dL (12.0-16.0); LYMPHOCYTES % 21.5 % (20.0-50.0); MEAN CORPUSCULAR HEMOGLOBIN 27.6 pg (28.0-32.0); MEAN PLATELET VOLUME 8.6 fl (7.4-10.4); MONOCYTES % 4.8 % (2.0-8.0); NEUTROPHILS % 73.5 % (40.0-76.0); PLATELET 183 x1000/uL (130-400); RED BLOOD CELL COUNT 4.62 mill/uL (4.2-5.4); RED CELL DISTRIBUTION WIDTH 13.8 % (11.6-14.6)
[2021-01-23 12:58] LABS: CHLORIDE 106 mEq/L (98-107)
[2021-01-23] MEDS: ACETAMINOPHEN 650MG/20.3ML UDC PO PRN (14:34)
[2021-01-23] MEDS: PIPERACILLIN/TAZOBACTAM 3.375 G in DEXTROSE 5% WATER 50 ML IV SCH ×2 (15:35→21:53)
[2021-01-23] MEDS: ENOXAPARIN 40MG/0.4ML SYR SUBCUT SCH (17:42)
[2021-01-24] VITALS: BP 121/70
[2021-01-24] MEDS: MORPHINE SULFATE 2 MG/ML CPJ (NOT FOR IM USE) IV PRN ×6 (01:35→21:31)
[2021-01-24 04:00] VITALS: BP 135/84
[2021-01-24] MEDS: ACETAMINOPHEN 650MG/20.3ML UDC PO PRN ×2 (04:46→15:33)
[2021-01-24 05:35] LABS: *AMPHETAMINES SCREEN URINE NEGATIVE (NEGATIVE); *BARBITURATES SCREEN URINE NEGATIVE (NEGATIVE)
[2021-01-24 05:37] LABS: *BENZODIAZEPINES SCREEN URINE NEGATIVE (NEGATIVE); *COCAINE SCREEN URINE PRESUMTIVE POSITIVE (NEGATIVE); CANNABINOID URINE SCREEN PRESUMTIVE POSITIVE (NEGATIVE); METHADONE URINE SCREEN NEGATIVE (NEGATIVE); OPIATES URINE SCREEN PRESUMTIVE POSITIVE (NEGATIVE); PHENCYCLIDINE URINE SCREEN NEGATIVE (NEGATIVE)
[2021-01-24] MEDS: PIPERACILLIN/TAZOBACTAM 3.375 G in DEXTROSE 5% WATER 50 ML IV SCH ×3 (06:29→21:30)
[2021-01-24 06:47] LABS: BASOPHILS % 0.1 % (0.0-2.0); HEMATOCRIT. 38.2 % (36.0-48.0); HEMOGLOBIN. 12.7 g/dL (12.0-16.0); LYMPHOCYTES % 9.3 % (20.0-50.0); MEAN CORPUSCULAR HEMOGLOBIN 27.4 pg (28.0-32.0); MEAN CORPUSCULAR VOLUME 82.5 fL (81.0-99.0); MEAN PLATELET VOLUME 8.9 fl (7.4-10.4); MONOCYTES % 4.5 % (2.0-8.0); NEUTROPHILS % 86.1 % (40.0-76.0); PLATELET 156 x1000/uL (130-400); RED BLOOD CELL COUNT 4.64 mill/uL (4.2-5.4); RED CELL DISTRIBUTION WIDTH 13.8 % (11.6-14.6)
[2021-01-24 06:54] LABS: CHLORIDE 106 mEq/L (98-107)
[2021-01-24] MEDS: ONDANSETRON HCL 4MG/2ML INJ IV PRN (09:20)
[2021-01-24] MEDS: PANTOPRAZOLE SODIUM 40 MG/VIAL IV SCH (09:20)
[2021-01-24] MEDS: DEXT 5%/0.45% NACL KCL 20MEQ/L 1,000 ML IV SCH ×2 (10:00→21:30)
[2021-01-24 12:00] VITALS: BP 150/86
[2021-01-24] MEDS ORDERED: ACETAMINOPHEN 325MG TABLET PO PRN (12:00)
[2021-01-24] MEDS: ENOXAPARIN 40MG/0.4ML SYR SUBCUT SCH (17:17)
[2021-01-24 20:00] VITALS: BP 128/75
[2021-01-25] VITALS: BP 141/84
[2021-01-25] MEDS: MORPHINE SULFATE 2 MG/ML CPJ (NOT FOR IM USE) IV PRN ×6 (03:14→23:39)
[2021-01-25 04:00] VITALS: BP 145/88
[2021-01-25] MEDS: DEXT 5%/0.45% NACL KCL 20MEQ/L 1,000 ML IV SCH ×3 (04:54→23:38)
[2021-01-25] MEDS: PIPERACILLIN/TAZOBACTAM 3.375 G in DEXTROSE 5% WATER 50 ML IV SCH ×3 (04:54→21:06)
[2021-01-25 07:52] LABS: BASOPHILS % 0.1 % (0.0-2.0); EOSINOPHILS % 0.1 % (0.0-5.0); HEMATOCRIT. 38.7 % (36.0-48.0); LYMPHOCYTES % 8.8 % (20.0-50.0); MEAN CORPUSCULAR HEMOGLOBIN 27.5 pg (28.0-32.0); MEAN PLATELET VOLUME 9.2 fl (7.4-10.4); MONOCYTES % 4.1 % (2.0-8.0); NEUTROPHILS % 86.9 % (40.0-76.0); PLATELET 152 x1000/uL (130-400); RED BLOOD CELL COUNT 4.72 mill/uL (4.2-5.4); RED CELL DISTRIBUTION WIDTH 13.7 % (11.6-14.6)
[2021-01-25 07:59] LABS: CHLORIDE 106 mEq/L (98-107)
[2021-01-25 08:00] VITALS: BP 135/71
[2021-01-25] MEDS: ONDANSETRON HCL 4MG/2ML INJ IV PRN (08:51)
[2021-01-25] MEDS: PANTOPRAZOLE SODIUM 40 MG/VIAL IV SCH (09:30)
[2021-01-25 12:29] VITALS: BP 168/98
[2021-01-25] MEDS: ACETAMINOPHEN 650MG/20.3ML UDC PO PRN (15:17)
[2021-01-25 16:00] VITALS: BP 153/87
[2021-01-25] MEDS: ENOXAPARIN 40MG/0.4ML SYR SUBCUT SCH (17:51)
[2021-01-25 20:00] VITALS: BP_SYST 115; BP_SYST 144; BP_DIAS 73; BP_DIAS 88
[2021-01-26] VITALS: BP 138/93
[2021-01-26 04:00] VITALS: BP 157/89
[2021-01-26] MEDS: MORPHINE SULFATE 2 MG/ML CPJ (NOT FOR IM USE) IV PRN ×5 (04:59→21:24)
[2021-01-26] MEDS: PIPERACILLIN/TAZOBACTAM 3.375 G in DEXTROSE 5% WATER 50 ML IV SCH ×3 (05:00→21:04)
[2021-01-26 08:00] VITALS: BP 146/98
[2021-01-26] MEDS: ACETAMINOPHEN 650MG/20.3ML UDC PO PRN ×2 (09:04→23:06)
[2021-01-26] MEDS: DIPHENHYDRAMINE 50MG/ML VIAL IV PRN (09:04)
[2021-01-26] MEDS: PANTOPRAZOLE SODIUM 40 MG/VIAL IV SCH (09:05)
[2021-01-26] MEDS: DEXT 5%/0.45% NACL KCL 20MEQ/L 1,000 ML IV SCH ×2 (11:06→21:04)
[2021-01-26 12:00] VITALS: BP 148/95
[2021-01-26 16:00] VITALS: BP 149/96
[2021-01-26] MEDS: ENOXAPARIN 40MG/0.4ML SYR SUBCUT SCH (16:51)
[2021-01-26 20:00] VITALS: BP 131/71
[2021-01-27] VITALS: BP 155/96
[2021-01-27] MEDS: MORPHINE SULFATE 2 MG/ML CPJ (NOT FOR IM USE) IV PRN ×2 (00:28→04:30)
[2021-01-27 04:00] VITALS: BP 146/92
[2021-01-27] MEDS: PIPERACILLIN/TAZOBACTAM 3.375 G in DEXTROSE 5% WATER 50 ML IV SCH ×3 (05:01→20:58)
[2021-01-27 08:00] VITALS: BP 143/88
[2021-01-27] MEDS ORDERED: LIDOCAINE HCL 1% 10 MG/ML 10ML VIAL ONE (08:23)
[2021-01-27] MEDS: PANTOPRAZOLE SODIUM 40 MG/VIAL IV SCH (10:00)
[2021-01-27] MEDS: ACETAMINOPHEN 650MG/20.3ML UDC PO PRN ×2 (10:03→23:15)
[2021-01-27 12:00] VITALS: BP 139/79
[2021-01-27] MEDS: DEXT 5%/0.45% NACL KCL 20MEQ/L 1,000 ML IV SCH ×2 (12:21→17:20)
[2021-01-27] MEDS: ONDANSETRON HCL 4MG/2ML INJ IV PRN (12:21)
[2021-01-27] MEDS ORDERED: ONDANSETRON HCL 4MG/2ML INJ IV NR (15:30)
[2021-01-27 16:00] VITALS: BP 133/82
[2021-01-27] MEDS ORDERED: HYDROCODONE/ACETAMINOPHEN 5/325MG TABLET PO PRN (17:00)
[2021-01-27] MEDS ORDERED: NALOXONE HCL 0.4MG/ML VIAL IV PRN (17:15)
[2021-01-27] MEDS: ENOXAPARIN 40MG/0.4ML SYR SUBCUT SCH (17:18)
[2021-01-27] MEDS: KETOROLAC 30MG/ML VIAL IV PRN (19:30)
[2021-01-27 20:00] VITALS: BP 151/92
[2021-01-28] VITALS: BP 145/89
[2021-01-28] MEDS: KETOROLAC 30MG/ML VIAL IV PRN ×2 (01:47→08:49)
[2021-01-28 04:00] VITALS: BP 137/89
[2021-01-28] MEDS: DEXT 5%/0.45% NACL KCL 20MEQ/L 1,000 ML IV SCH ×2 (05:22→14:00)
[2021-01-28] MEDS: PIPERACILLIN/TAZOBACTAM 3.375 G in DEXTROSE 5% WATER 50 ML IV SCH (05:22)
[2021-01-28 08:00] VITALS: BP 147/82
[2021-01-28] MEDS: PANTOPRAZOLE SODIUM 40 MG/VIAL IV SCH (08:48)
[2021-01-28 12:00] VITALS: BP 152/89
[2021-01-28 13:36] VITALS: BP 152/89
== END 2021-01-28 15:35 | disposition home or self-care (01) | DRG 227 ==
LOC: ER 18:10 → ORIP 01-22 05:45 → ER 01-22 08:30 → CANBEDREQ 01-22 10:37 → 7EST 01-22 17:47
PROVIDERS: ADMIT Internal Medicine; ATTEND Internal Medicine
PROC: 0WUF0JZ Supplement Abdominal Wall with Synthetic Substitute, Open Approach (ICD-10-PCS; principal; 2021-01-22)
DX: K43.0 Incisional hernia with obstruction, without gangrene (principal); E87.8 Other disorders of electrolyte and fluid balance, not elsewhere classified; F31.9 Bipolar disorder, unspecified; F14.90 Cocaine use, unspecified, uncomplicated; Z20.822 Contact with and (suspected) exposure to COVID-19; F41.9 Anxiety disorder, unspecified; F17.210 Nicotine dependence, cigarettes, uncomplicated; Z90.710 Acquired absence of both cervix and uterus; Z88.5 Allergy status to narcotic agent; Z88.2 Allergy status to sulfonamides; Z88.8 Allergy status to other drugs, medicaments and biological substances; Z79.82 Long term (current) use of aspirin; Z79.899 Other long term (current) drug therapy; Z90.49 Acquired absence of other specified parts of digestive tract
CPT/HCPCS: 36415; 71045; 74176; 80048; 80053; 80305; 83605; 85025; 87426; 88302; 93005; 97161; 99285; C1781; C1893; C9113; J0690; J1100; J1170; J1200; J1650; J1885; J2175; J2270; J2274; J2405; J2543; J2704; J3490; J7030; J7060